=== PATIENT | male | born 1935 | race African-American/Black ===

== ENCOUNTER 2019-11-30 01:27 | Emergency (ER) | payer MEDICARE, OTHER ==
[~2019-11-30] VITALS: Ht 185.4 cm; Wt 81.0 kg
[~2019-11-30 01:27] MED LIST: DONE10TA11 PO; FAMO20TA8 PO; MIRT15TA6 PO; OLANZAPINE; PARO-41 PO; TRAZ-251 PO
[2019-11-30 02:51] LABS: BASOPHILS % 0.3 % (0.0-2.0); EOSINOPHILS % 1.6 % (0.0-5.0); HEMOGLOBIN. 12.6 g/dL (14.0-18.0); LYMPHOCYTES % 15.7 % (20.0-50.0); MEAN CORPUSCULAR VOLUME 96.6 fL (80.0-94.0); MEAN PLATELET VOLUME 8.5 fl (7.4-10.4); NEUTROPHILS % 76.4 % (40.0-76.0); PLATELET 192 x1000/uL (130-400); RED BLOOD CELL COUNT 3.83 mill/uL (4.7-6.1); RED CELL DISTRIBUTION WIDTH 15.8 % (11.6-14.6)
[2019-11-30 02:56] LABS: CHLORIDE 110 mEq/L (98-107)
[2019-11-30] MEDS ORDERED: SODIUM POLYSTYRENE SULFONATE 15 G/60 ML BOT PR ONE (04:45)
[2019-11-30 05:04] LABS: CLARITY URINE CLEAR (CLEAR); COLOR URINE YELLOW (YELLOW); KETONES URINE NEGATIVE (NEGATIVE); LEUKOCYTE ESTERASE URINE NEGATIVE (NEGATIVE); NITRITE URINE NEGATIVE (NEGATIVE); OCCULT BLOOD URINE NEGATIVE (NEGATIVE); PROTEIN URINE NEGATIVE (NEGATIVE); SPECIFIC GRAVITY URINE 1.006 (1.005-1.030); UROBILINOGEN URINE 0.2 E.U./dL (0.2-1.0)
[2019-11-30 13:05] VITALS: BP 153/86
== END 2019-11-30 13:59 | disposition home or self-care (01) ==
LOC: ER 01:27
DX: F03.90 Unspecified dementia, unspecified severity, without behavioral disturbance, psychotic disturbance, mood disturbance, and anxiety (principal); J18.9 Pneumonia, unspecified organism; Z85.46 Personal history of malignant neoplasm of prostate; Z79.899 Other long term (current) drug therapy
CPT/HCPCS: 36415; 71045; 80053; 81003; 85025; 93005; 99285

== ENCOUNTER 2020-02-01 14:25 | Inpatient (IN) | payer MEDICARE ==
[~2020-02-01] VITALS: Ht 182.9 cm; Wt 70.3 kg
[2020-02-01] MEDS ORDERED: METOPROLOL (14:31)
[2020-02-01] MEDS ORDERED: AMLODIPINE (14:31)
[2020-02-01] MEDS ORDERED: ATIVAN (14:31)
[2020-02-01] MEDS ORDERED: SODIUM CHLORIDE 0.9% 1,000 ML IV ONE (15:38)
[2020-02-01 16:08] LABS: BASOPHILS % 0.2 % (0.0-2.0); EOSINOPHILS % 1.7 % (0.0-5.0); HEMATOCRIT. 34.7 % (42.0-52.0); HEMOGLOBIN. 11.9 g/dL (14.0-18.0); LYMPHOCYTES % 20.9 % (20.0-50.0); MEAN CORPUSCULAR HEMOGLOBIN 33.2 pg (28.0-32.0); MEAN CORPUSCULAR VOLUME 96.9 fL (80.0-94.0); MEAN PLATELET VOLUME 8.7 fl (7.4-10.4); NEUTROPHILS % 69.2 % (40.0-76.0); PLATELET 190 x1000/uL (130-400); RED BLOOD CELL COUNT 3.58 mill/uL (4.7-6.1); RED CELL DISTRIBUTION WIDTH 16.2 % (11.6-14.6)
[2020-02-01 16:16] LABS: CHLORIDE 109 mEq/L (98-107)
[2020-02-01 16:18] LABS: PROTHROMBIN TIME 10.6 sec (9.6-11.0)
[2020-02-01 18:36] LABS: CLARITY URINE CLEAR (CLEAR); COLOR URINE YELLOW (YELLOW); KETONES URINE 1+ (NEGATIVE); LEUKOCYTE ESTERASE URINE NEGATIVE (NEGATIVE); NITRITE URINE NEGATIVE (NEGATIVE); OCCULT BLOOD URINE NEGATIVE (NEGATIVE); PROTEIN URINE NEGATIVE (NEGATIVE); SPECIFIC GRAVITY URINE 1.009 (1.005-1.030); UROBILINOGEN URINE 0.2 E.U./dL (0.2-1.0)
[2020-02-02 08:30] VITALS: BP 145/91
[2020-02-02 08:45] VITALS: BP 145/91
[2020-02-02] MEDS ORDERED: ACETAMINOPHEN 650MG SUPP PR PRN (11:30)
[2020-02-02] MEDS ORDERED: ACETAMINOPHEN 325MG TABLET PO PRN (11:30)
[2020-02-02] MEDS ORDERED: GUAIFENESIN 200MG/10ML SUGAR FREE UDC PO PRN (11:30)
[2020-02-02] MEDS ORDERED: DOCUSATE SODIUM 100MG CAPSULE PO PRN (11:30)
[2020-02-02] MEDS ORDERED: HYDROCODONE/ACETAMINOPHEN 5/325MG TABLET PO PRN (11:30)
[2020-02-02] MEDS ORDERED: MAGNESIUM/ALUMINUM HYDROXIDE/SIMETHICONE 30ML UDC PO PRN (11:30)
[2020-02-02] MEDS ORDERED: ONDANSETRON HCL 4MG/2ML INJ IV PRN (11:30)
[2020-02-02] MEDS ORDERED: NA PHOS,M-B/NA PHOS,DI-BA ENEMA 118ML PR PRN (11:30)
[2020-02-02] MEDS ORDERED: IPRATROPIUM/ALBUTEROL 0.5-3(2.5)MG/3ML NEB NEB PRN (11:30)
[2020-02-02] MEDS ORDERED: DIPHENHYDRAMINE 50MG/ML VIAL IV PRN (11:30)
[2020-02-02] MEDS ORDERED: CLONIDINE 0.1MG TABLET PO PRN (11:30)
[2020-02-02 12:00] VITALS: BP 141/70
[2020-02-02 13:21] LABS: BASOPHILS % 0.3 % (0.0-2.0); EOSINOPHILS % 0.9 % (0.0-5.0); HEMATOCRIT. 37.4 % (42.0-52.0); HEMOGLOBIN. 12.7 g/dL (14.0-18.0); LYMPHOCYTES % 18.7 % (20.0-50.0); MEAN CORPUSCULAR HEMOGLOBIN 33.3 pg (28.0-32.0); MEAN PLATELET VOLUME 8.6 fl (7.4-10.4); MONOCYTES % 5.5 % (2.0-8.0); NEUTROPHILS % 74.6 % (40.0-76.0); PLATELET 186 x1000/uL (130-400); RED BLOOD CELL COUNT 3.82 mill/uL (4.7-6.1); RED CELL DISTRIBUTION WIDTH 15.9 % (11.6-14.6)
[2020-02-02] MEDS: FAMOTIDINE 20MG/2ML VIAL IV SCH (13:23)
[2020-02-02] MEDS: ENOXAPARIN 40MG/0.4ML SYR SUBCUT SCH (13:23)
[2020-02-02 13:37] LABS: CHLORIDE 106 mEq/L (98-107)
[2020-02-02 14:37] LABS: BG BASE EXCESS -3.9 mmol/L (-2.0-2.0); BG CARBOXYHEMOGLOBIN 0.6 % (0.5-1.5); BG DEOXYHEMOGLOBIN 4.7 % (0.0-5.0); BG FRACTION INSPIRED OXYGEN 21; BG HCO3 ACT 20.3 mmol/L (22.0-26.0); BG METHEMOGLOBIN 0.2 % (0.0-1.5); BG OXYGEN SATURATION 95.3 % (92.0-98.5); BG OXYHEMOGLOBIN 94.5 % (94.0-97.0); BG PCO2 34.3 mmHg (35.0-45.0); BG PO2 81.7 mmHg (75.0-100.0); BG SAMPLE SITE RIGHT RADIAL; BG TOTAL HEMOGLOBIN 12.8 g/dL (12.0-18.0); BG VENT MODE ROOM AIR
[2020-02-02] MEDS: PIPERACILLIN/TAZOBACTAM 3.375 G in DEXT 5% WATER 100 ML IV SCH ×2 (14:51→20:37)
[2020-02-02 16:00] VITALS: BP 158/89
[2020-02-02 17:19] LABS: CREATINE KINASE 261 IU/L (39-308); CREATINE KINASE MB FRACTION 4.3 ng/mL (0.5-3.6)
[2020-02-02 18:59] LABS: HEPATITIS B SURFACE ANTIGEN NEGATIVE
[2020-02-02 19:29] LABS: HEPATITIS A AB IGM NEGATIVE (NEGATIVE)
[2020-02-02 20:00] VITALS: BP 138/85
[2020-02-03] VITALS: BP_SYST 120; BP_SYST 145; BP_DIAS 51; BP_DIAS 93
[2020-02-03] MEDS: LORAZEPAM 0.5MG TABLET PO PRN ×4 (00:04→19:55)
[2020-02-03 00:19] LABS: CREATINE KINASE 329 IU/L (39-308)
[2020-02-03 00:20] LABS: CREATINE KINASE MB FRACTION 5.1 ng/mL (0.5-3.6)
[2020-02-03] MEDS: PIPERACILLIN/TAZOBACTAM 3.375 G in DEXT 5% WATER 100 ML IV SCH ×4 (03:55→18:28)
[2020-02-03 04:00] VITALS: BP 139/90
[2020-02-03 06:10] LABS: *AMPHETAMINES SCREEN URINE NEGATIVE (NEGATIVE); *BARBITURATES SCREEN URINE NEGATIVE (NEGATIVE); *BENZODIAZEPINES SCREEN URINE PRESUMTIVE POSITIVE (NEGATIVE); *COCAINE SCREEN URINE NEGATIVE (NEGATIVE)
[2020-02-03 06:11] LABS: CANNABINOID URINE SCREEN NEGATIVE (NEGATIVE); OPIATES URINE SCREEN NEGATIVE (NEGATIVE); PHENCYCLIDINE URINE SCREEN NEGATIVE (NEGATIVE)
[2020-02-03 06:14] LABS: METHADONE URINE SCREEN NEGATIVE (NEGATIVE)
[2020-02-03 06:27] LABS: CHLORIDE 107 mEq/L (98-107)
[2020-02-03 06:39] LABS: HDL CHOLESTEROL 74 mg/dL (40-59); LDL CHOLESTEROL 77 mg/dL (5-100)
[2020-02-03 07:20] LABS: BASOPHILS % 0.3 % (0.0-2.0); EOSINOPHILS % 1.8 % (0.0-5.0); HEMATOCRIT. 34.1 % (42.0-52.0); HEMOGLOBIN. 11.8 g/dL (14.0-18.0); LYMPHOCYTES % 21.6 % (20.0-50.0); MEAN CORPUSCULAR HEMOGLOBIN 33.4 pg (28.0-32.0); MEAN CORPUSCULAR VOLUME 96.5 fL (80.0-94.0); MEAN PLATELET VOLUME 8.9 fl (7.4-10.4); MONOCYTES % 10.2 % (2.0-8.0); NEUTROPHILS % 66.1 % (40.0-76.0); PLATELET 177 x1000/uL (130-400); RED BLOOD CELL COUNT 3.53 mill/uL (4.7-6.1); RED CELL DISTRIBUTION WIDTH 16.1 % (11.6-14.6)
[2020-02-03 08:00] VITALS: BP 125/78
[2020-02-03] MEDS: FAMOTIDINE 20MG/2ML VIAL IV SCH (09:07)
[2020-02-03 12:00] VITALS: BP 118/62
[2020-02-03] MEDS: ENOXAPARIN 40MG/0.4ML SYR SUBCUT SCH (12:19)
[2020-02-03 16:00] VITALS: BP 142/88
[2020-02-03 20:00] VITALS: BP 117/67
[2020-02-04] VITALS: BP 121/73
[2020-02-04] MEDS: LORAZEPAM 0.5MG TABLET PO PRN ×2 (01:56→09:53)
[2020-02-04] MEDS: PIPERACILLIN/TAZOBACTAM 3.375 G in DEXT 5% WATER 100 ML IV SCH ×4 (02:00→18:00)
[2020-02-04 04:00] VITALS: BP 118/73
[2020-02-04 08:00] VITALS: BP 109/54
[2020-02-04] MEDS: FAMOTIDINE 20MG/2ML VIAL IV SCH (09:56)
[2020-02-04 12:00] VITALS: BP 140/86
[2020-02-04] MEDS: ENOXAPARIN 40MG/0.4ML SYR SUBCUT SCH (12:11)
== END 2020-02-04 20:05 | disposition home or self-care (01) | DRG 91 ==
LOC: ER 14:25 → EDBEDREQTM 17:06 → EDBEDREQ 17:06 → MICUSO 19:36 → EDBEDREQ 19:38 → EDBEDREQSVC 19:38 → EDBEDREQTM 19:38 → 6EST 02-02 03:57
PROVIDERS: ADMIT Internal Medicine; ATTEND Internal Medicine
DX: G92 Toxic encephalopathy (principal); I50.33 Acute on chronic diastolic (congestive) heart failure; I31.3 Pericardial effusion (noninflammatory); F03.90 Unspecified dementia, unspecified severity, without behavioral disturbance, psychotic disturbance, mood disturbance, and anxiety; D64.9 Anemia, unspecified; I11.0 Hypertensive heart disease with heart failure; F99 Mental disorder, not otherwise specified; W06.XXXA Fall from bed, initial encounter; I27.20 Pulmonary hypertension, unspecified; I48.91 Unspecified atrial fibrillation; Z79.899 Other long term (current) drug therapy; Y93.89 Activity, other specified; Y92.89 Other specified places as the place of occurrence of the external cause; Y99.8 Other external cause status; Z98.890 Other specified postprocedural states
CPT/HCPCS: 36415; 36600; 71045; 74176; 80053; 80061; 80305; 81003; 82105; 82140; 82375; 82378; 82550; 82553; 82805; 84153; 84439; 84443; 84484; 85025; 86705; 86709; 86803; 87340; 93005; 93306; 93970; 97162; 97530; 99285; J1650; J2543; J3490; J7030; J7060; G0103

== ENCOUNTER 2021-08-01 00:41 | Inpatient (IN) | payer MEDICARE ==
[~2021-08-01] VITALS: Ht 177.8 cm; Wt 73.0 kg
[~2021-08-01 00:41] MED LIST changes: +AMLODIPINE; +ATIVAN; +METOPROLOL; +MIRT-89 PO; -MIRT15TA6 PO
[2021-08-01 06:23] LABS: CHLORIDE 110 mEq/L (98-107)
[2021-08-01 06:39] LABS: HEMATOCRIT. 28.5 % (42.0-52.0); HEMOGLOBIN. 9.8 g/dL (14.0-18.0); MEAN CORPUSCULAR VOLUME 96.1 fL (80.0-94.0); PLATELET 172 x1000/uL (130-400); RED BLOOD CELL COUNT 2.97 mill/uL (4.7-6.1); RED CELL DISTRIBUTION WIDTH 15.3 % (11.6-14.6)
[2021-08-01 06:55] LABS: INR 1.1; PROTHROMBIN TIME 11.6 sec (9.6-11.0)
[2021-08-01] MEDS ORDERED: NOREPINEPHRINE 8MG/250ML PMX 250 ML IV STA (08:46)
[2021-08-01] MEDS ORDERED: CEFTRIAXONE 1 G PREMIX 50 ML IV ONE (09:00)
[2021-08-01] MEDS ORDERED: VANCOMYCIN 1G PREMIX 200 ML IV ONE (09:00)
[2021-08-01 09:17] LABS: BG CARBOXYHEMOGLOBIN 0.3 % (0.5-1.5); BG DEOXYHEMOGLOBIN 39.5 % (0.0-5.0); BG FRACTION INSPIRED OXYGEN 30; BG HCO3 ACT 12.6 mmol/L (22.0-26.0); BG METHEMOGLOBIN 0.2 % (0.0-1.5); BG OXYGEN SATURATION 60.3 % (92.0-98.5); BG PH 7.161 (7.350-7.450); BG PO2 43.7 mmHg (75.0-100.0); BG SAMPLE SITE RIGHT BRACHIAL; BG TOTAL HEMOGLOBIN 8.9 g/dL (12.0-18.0); BG TOTAL RESPIRATORY RATE 39 b/min; BG VENT MODE MASK - BIPAP
[2021-08-01] MEDS ORDERED: PHENYLEPHRINE 100 MG in DEXT 5% WATER 240 ML IV PRN ×3 (09:30→11:45)
[2021-08-01 10:14] LABS: PLATELET ESTIMATE NORMAL
[2021-08-01] MEDS ORDERED: PROPOFOL 10MG/ML 100ML 100 ML IV ONE (10:45)
[2021-08-01 12:01] LABS: BG BASE EXCESS -23.5 mmol/L (-2.0-2.0); BG CARBOXYHEMOGLOBIN 0.3 % (0.5-1.5); BG FRACTION INSPIRED OXYGEN 100; BG HCO3 ACT 9.3 mmol/L (22.0-26.0); BG METHEMOGLOBIN 0.3 % (0.0-1.5); BG OXYGEN SATURATION 62.8 % (92.0-98.5); BG OXYHEMOGLOBIN 62.4 % (94.0-97.0); BG PCO2 52.1 mmHg (35.0-45.0); BG PH 6.871 (7.350-7.450); BG PO2 54.5 mmHg (75.0-100.0); BG SAMPLE SITE RIGHT RADIAL; BG TOTAL HEMOGLOBIN 10.6 g/dL (12.0-18.0); BG TOTAL RESPIRATORY RATE 27 b/min; BG VENT MODE VENT - AC
[2021-08-01] MEDS ORDERED: SODIUM BICARBONATE 8.4% 1 MEQ/ML 50ML SYR IV SCH (12:15)
[2021-08-01] MEDS ORDERED: SODIUM BICARBONATE 8.4% 1 MEQ/ML 50ML SYR IV ONE (12:15)
[2021-08-01] MEDS ORDERED: EPINEPHRINE 5 MG in SODIUM CHLORIDE 0.9% 245 ML IV STA (12:24)
[2021-08-01 13:58] LABS: BG BASE EXCESS -15.1 mmol/L (-2.0-2.0); BG CARBOXYHEMOGLOBIN 0.3 % (0.5-1.5); BG DEOXYHEMOGLOBIN 21.7 % (0.0-5.0); BG FRACTION INSPIRED OXYGEN 100; BG HCO3 ACT 13.7 mmol/L (22.0-26.0); BG METHEMOGLOBIN 0.7 % (0.0-1.5); BG OXYGEN SATURATION 78.1 % (92.0-98.5); BG OXYHEMOGLOBIN 77.3 % (94.0-97.0); BG PCO2 45.9 mmHg (35.0-45.0); BG PH 7.092 (7.350-7.450); BG PO2 60.5 mmHg (75.0-100.0); BG SAMPLE SITE LEFT RADIAL; BG TOTAL HEMOGLOBIN 7.9 g/dL (12.0-18.0); BG VENT MODE VENT - AC
[2021-08-01] MEDS ORDERED: NOREPINEPHRINE 32 MG in DEXT 5% WATER 218 ML IV STA (14:08)
[2021-08-01] MEDS ORDERED: DOPAMINE 800MG PREMIX (DOUBLE) 250 ML IV ONE (14:15)
[2021-08-01] MEDS ORDERED: NOREPINEPHRINE 32 MG in DEXT 5% WATER 218 ML IV PRN (14:30)
[2021-08-01] MEDS ORDERED: DOPAMINE 800MG PREMIX (DOUBLE) 250 ML IV PRN (14:30)
[2021-08-01] MEDS ORDERED: PANTOPRAZOLE SODIUM 40 MG/VIAL IV SCH (14:30)
[2021-08-01 14:37] LABS: CHLORIDE 109 mEq/L (98-107)
[2021-08-01 14:51] LABS: HEMOGLOBIN. 7.7 g/dL (14.0-18.0); LYMPHOCYTES % 8.9 % (20.0-50.0); MEAN CORPUSCULAR HEMOGLOBIN 32.7 pg (28.0-32.0)
[2021-08-01 15:14] LABS: TOTAL IRON BINDING CAPACITY 127 ug/dL (250-450)
[2021-08-01 15:24] LABS: BASOPHILS % 0.6 % (0.0-2.0); EOSINOPHILS % 0.8 % (0.0-5.0); HEMATOCRIT. 23.8 % (42.0-52.0); MEAN CORPUSCULAR VOLUME 100.6 fL (80.0-94.0); NEUTROPHILS % 88.7 % (40.0-76.0); RED BLOOD CELL COUNT 2.37 mill/uL (4.7-6.1)
[2021-08-01 15:28] LABS: MEAN PLATELET VOLUME 10.9 fl (7.4-10.4); PLATELET 150 x1000/uL (130-400)
[2021-08-01 15:30] VITALS: BP 64/31
[2021-08-01 15:32] LABS: FOLIC ACID (FOLATE) SERUM 10.4 ng/mL (>5.38)
== END 2021-08-01 18:45 | DRG 377 ==
LOC: ER 00:41 → MICUSO 08:54 → EDBEDREQTM 09:02 → EDBEDREQSVC 09:02 → EDBEDREQ 09:02 → EDBEDREQSVC 09:36 → ENRESERV 15:19
PROVIDERS: ADMIT Internal Medicine; ATTEND Internal Medicine
PROC: 0BH17EZ Insertion of Endotracheal Airway into Trachea, Via Natural or Artificial Opening (ICD-10-PCS; principal; 2021-08-01)
PROC: 5A1935Z Respiratory Ventilation, Less than 24 Consecutive Hours (ICD-10-PCS; 2021-08-01)
PROC: 5A12012 Performance of Cardiac Output, Single, Manual (ICD-10-PCS; 2021-08-01)
PROC: 06HY33Z Insertion of Infusion Device into Lower Vein, Percutaneous Approach (ICD-10-PCS; 2021-08-01)
PROC: B54CZZA Ultrasonography of Left Lower Extremity Veins, Guidance (ICD-10-PCS; 2021-08-01)
PROC: 5A09357 Assistance with Respiratory Ventilation, Less than 24 Consecutive Hours, Continuous Positive Airway Pressure (ICD-10-PCS; 2021-08-01)
DX: K29.61 Other gastritis with bleeding (principal); U07.1 COVID-19; J12.82 Pneumonia due to coronavirus disease 2019; R65.10 Systemic inflammatory response syndrome (SIRS) of non-infectious origin without acute organ dysfunction; F03.90 Unspecified dementia, unspecified severity, without behavioral disturbance, psychotic disturbance, mood disturbance, and anxiety; I11.0 Hypertensive heart disease with heart failure; I50.9 Heart failure, unspecified; R57.1 Hypovolemic shock; I46.9 Cardiac arrest, cause unspecified; D53.9 Nutritional anemia, unspecified; R74.8 Abnormal levels of other serum enzymes; R79.89 Other specified abnormal findings of blood chemistry; I48.91 Unspecified atrial fibrillation
CPT/HCPCS: 36415; 36600; 71045; 80053; 82375; 82607; 82728; 82746; 82805; 82962; 83540; 83550; 83605; 83880; 84484; 85025; 85044; 86850; 86900; 87426; 93005; 94002; 94660; 99291; J2370; J3490; J7050; J7060; A4315